=== PATIENT | female | born 1995 | race African-American/Black ===

== ENCOUNTER 2019-08-26 10:50 | Emergency (ER) | payer SELFPAY ==
[~2019-08-26] VITALS: Ht 162.6 cm; Wt 104.0 kg
[2019-08-26 12:35] LABS: BASOPHILS % 0.6 % (0.0-2.0); EOSINOPHILS % 3.9 % (0.0-5.0); HEMATOCRIT. 39.9 % (36.0-48.0); HEMOGLOBIN. 13.4 g/dL (12.0-16.0); MEAN CORPUSCULAR HEMOGLOBIN 27.7 pg (28.0-32.0); MEAN CORPUSCULAR VOLUME 82.6 fL (81.0-99.0); MEAN PLATELET VOLUME 8.1 fl (7.4-10.4); MONOCYTES % 7.9 % (2.0-8.0); NEUTROPHILS % 57.6 % (40.0-76.0); PLATELET 325 x1000/uL (130-400); RED BLOOD CELL COUNT 4.83 mill/uL (4.2-5.4); RED CELL DISTRIBUTION WIDTH 13.7 % (11.6-14.6)
[2019-08-26 13:01] LABS: CLARITY URINE CLOUDY (CLEAR); COLOR URINE YELLOW (YELLOW); KETONES URINE TRACE (NEGATIVE); LEUKOCYTE ESTERASE URINE 2+ (NEGATIVE); NITRITE URINE POSITIVE (NEGATIVE); OCCULT BLOOD URINE 3+ (NEGATIVE); PROTEIN URINE 1+ (NEGATIVE); SPECIFIC GRAVITY URINE 1.023 (1.005-1.030)
[2019-08-26] MEDS ORDERED: ACETAMINOPHEN 500MG TABLET PO ONE (14:30)
[2019-08-26 15:15] LABS: CHLORIDE 108 mEq/L (98-107)
[2019-08-26 15:25] LABS: B-HCG QUANTITATIVE 488 mIU/mL (<3)
[2019-08-26 16:07] VITALS: BP 127/82
== END 2019-08-26 16:08 | disposition home or self-care (01) ==
LOC: ER 10:50
DX: O03.9 Complete or unspecified spontaneous abortion without complication (principal); O23.41 Unspecified infection of urinary tract in pregnancy, first trimester; Z3A.10 10 weeks gestation of pregnancy
CPT/HCPCS: 36415; 76801; 80053; 81003; 81025; 84702; 85025; 86850; 86900; 87077; 87186; 99285